=== PATIENT | female | born 1980 | race Caucasian/White ===

== ENCOUNTER 2017-03-31 01:35 | Emergency (ER) | payer MEDICAID, SELFPAY ==
[2017-03-31 01:37] VITALS: BP 137/117; PULSE 89; RESP 16; TEMP 36.6; O2SAT 95; BMI 33.3
--- NOTE | 2017-03-31 01:54 | US_ITS ---
STUDY: FIRST TRIMESTER OBSTETRICAL ULTRASOUND REASON FOR EXAM: Female, 36 years old. Lower pelvic pain. Elevated beta hCG. LMP: 02/23/2017. TECHNIQUE: Transvaginal. PRIOR ULTRASOUND: None. FINDINGS: There is visualization of a single gestational sac in a normal intrauterine position. The mean sac diameter (MSD) measures 1.3 cm, indicating an estimated gestational age (EGA) of 6 weeks, 1 days. The gestational sac shape is within normal limits. There is a visualized yolk sac. The yolk sac measures 3 mm. The placenta is non-visualized. There is visualization of a live embryo. The crown-rump length (CRL) measures 0.2 cm, indicating an estimated gestational age (EGA) of 5 weeks, 6 days. There is demonstrated cardiac activity with a heart rate of 102 bpm. The estimated gestation age (EGA) by LMP is 5 weeks, 1 days. The estimated date of delivery (VIOLETTE) by LMP is 11/30/2017. The estimated gestation age (EGA) by US is 6 weeks, 0 days. The estimated date of delivery (VIOLETTE) by US is 11/24/2017. The uterus measures 8.8 x 8.1 x 4.5 cm. Uterine fibroids measuring 3.4 x 3.1 x 3.3 cm and 2.7 x 2.2 x 2.1 cm. The cervix is closed. The right ovary measures 2.7 x 2.2 x 1.4 cm. There is no right ovarian cyst. There is no visualized right adnexal mass or complex lesion. Left ovary not visualized. There is no fluid in the cul de sac. US/Transvaginal w/Preg US IMPRESSION: Single living intrauterine gestation with an estimated gestational age by ultrasound of 6 weeks 0 days. Estimated date of delivery 11/24/2017. Uterine fibroids. Left ovary not visualized. Electronically Signed: Carlos Fry MD at 4:19 EST , Service support ,
[2017-03-31 03:37] VITALS: RESP 18
[2017-03-31] MEDS: Ondansetron ODT 4 MG Tablet 8 MG PO (03:55)
--- NOTE | 2017-03-31 04:30 | ED.DCSUM_ITS ---
- ER Visit Summary Date of Service: 03/31/17 Chief Complaint: [] Left lower abdominal pain History of Present Illness: The patient is a 36 F patient was seen at [facility] and sent here for ultrasound. She developed some left lower pelvic pain at 5 PM today. It was a dull sensation. Is gone currently. She is and found out today. They did lab work and found out that her quantitative hCG was greater than 16,000. They do not have ultrasound capabilities. Urinalysis was negative. They sent her here for an ultrasound to rule out ectopic. Physical Examination: [] Vital signs reviewed General: Well-nourished well-developed Head: Normocephalic atraumatic Eyes: Pupils equal round and reactive to light extraocular movements intact ENT: TMs clear no hemotympanum no trauma Neck: Nontender full range of motion Cardiovascular: Regular rate rhythm no murmurs normal S1-S2 Respiratory: No distress clear to auscultation bilaterally chest nontender Abdomen: Soft nontender nondistended normal bowel sounds no masses Back: Nontender no CVA tenderness Extremities: Nontender active range of motion ?4 extremities no trauma Skin: Normal color no trauma Neuro alert oriented cranial nerves II through XII intact normal strength sensation reflexes Test Results: [] Emergency Department Course and Treatment: [] Percent obtained and shows a single live intrauterine at 6 weeks 0 days. Positive fibroid noted. Unable to visualize left ovary. Patient remained stable here she did require Zofran for nausea. 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 She wants to do [id number] prenatals. Could be an ovarian cyst. This could be gas pains. She will follow-up. Treatment Plan: [] Disposition: [] Impression: [] Adnexal pain resolved First trimester intrauterine This note was generated with [employer] dictation software. It may contain incorrect words, spelling, and punctuation that were not noted in review of the chart prior to signing ED Disposition - Plan for ED Patient: Chief Complaint: Female C/O Referrals: Elijah Love MD [Primary Care Provider] -
--- NOTE | 2017-03-31 04:30 | ED.DEP ---
ED Disposition - Plan for ED Patient: Disposition: Home or Assisted Living Chief Complaint: Female C/O Instructions: Care for a Healthy Baby Referrals: Elijah Love MD [Primary Care Provider] - Doctor,Your [STAFF PHYSICIAN] -
[2017-03-31 04:34] VITALS: RESP 18
== END 2017-03-31 04:35 | disposition home or self-care (01) ==
PROVIDERS: Emergency Provider Emergency Medicine; Family Provider Family Medicine; PCP Family Medicine
DX: O26.891 Other specified pregnancy related conditions, first trimester (principal); R10.2 Pelvic and perineal pain; Z3A.01 Less than 8 weeks gestation of pregnancy; O99.331 Smoking (tobacco) complicating pregnancy, first trimester; Z11.3 Encounter for screening for infections with a predominantly sexual mode of transmission; Z12.4 Encounter for screening for malignant neoplasm of cervix
CPT/HCPCS: 76817; 87491; 87591; 87624; 88175; 99282; G0145

== ENCOUNTER → 2017-03-31 17:33 | Outpatient (CLI) | payer MEDICAID, SELFPAY ==
[2017-03-31 19:23] LABS: Chlamydia Trachomatis by PCR Negative (Negative); Neisserai gonorrhoeae by PCR Negative (Negative); Probe Check PASS; Specimen Processing Control PASS
[2017-03-31 19:24] LABS: Sample Adequacy Control PASS
[2017-04-07 10:52] LABS: HPV HC, High Risk Negative (Negative)
== END ==
PROVIDERS: Visit Provider Obstetrics & Gynecology
DX: Z12.4 Encounter for screening for malignant neoplasm of cervix (principal); Z11.3 Encounter for screening for infections with a predominantly sexual mode of transmission
CPT/HCPCS: 87491; 87591; 87624; 88175; G0145

== ENCOUNTER 2017-04-20 19:29 | Emergency (ER) | payer SELFPAY ==
[2017-04-20 19:32] VITALS: BP 148/77; PULSE 85; RESP 18; TEMP 36.1; O2SAT 95; BMI 33.0
--- NOTE | 2017-04-20 19:48 | US_ITS ---
STUDY: FIRST TRIMESTER OBSTETRICAL ULTRASOUND REASON FOR EXAM: Female, 36 years old. BLEEDING WITH CRAMPS LMP: TECHNIQUE: Transvaginal PRIOR ULTRASOUND: None. FINDINGS: 1.10.18 The mean sac diameter (MSD) measures 34MM, indicating an estimated gestational age (EGA) of 8 weeks, 6 days. The gestational sac shape is within normal limits. There is a visualized yolk sac. The yolk sac measures 4.3 mm. The placenta is non-visualized. There is visualization of a live embryo. The crown-rump length (CRL) measures 22 mm, indicating an estimated gestational age (EGA) of 8 weeks, 6 days. There is demonstrated cardiac activity with a heart rate of 170 bpm. The estimated gestation age (EGA) by LMP is 8 weeks, 6 days. The estimated date of delivery (VIOLETTE) by LMP is 9.5.18. The estimated gestation age (EGA) by US is 8 weeks, 6 days. The estimated date of delivery (VIOLETTE) by US is 9.5.18. The uterus measures 10.5 x 11 x 5.7 cm. There is demonstrated uterine fibroid. Fibroid measures 52 x 45 mm and 29 x 20 mm. The cervix is closed. The right ovary measures 27 x 20 x 20 mm. There is no right ovarian cyst. There is no visualized right adnexal mass or complex lesion. The left ovary is not seen. There is no fluid in the cul de sac. US/Transvaginal w/Preg US IMPRESSION: There is a single live intrauterine with a heart rate of 170 bpm. The estimated gestation age (EGA) by US is 8 weeks, 6 days. The estimated date of delivery (VIOLETTE) by US is 9.5.18. Fibroid uterus. Electronically Signed: Driss Leslie MD at 21:07 EST , Service support ,
--- NOTE | 2017-04-20 20:05 | ED.DCSUM_ITS ---
- ER Visit Summary Date of Service: 04/20/17 Chief Complaint: First trimester vaginal bleeding History of Present Illness: The patient is a 36 F who states that she is 9 weeks . She is Ab1. Patient Dr. Lynch. Patient states that yesterday she began to have some spotting with some mild cramping. Today she states she passed about a cup of blood. Still with some slight cramping. She did not contact 's office. 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 She denies any fevers. She denies urinary symptoms. No known clotting disorders. Physical Examination: Afebrile vital signs are stable Gen: Well-nourished well-developed Head: Normocephalic atraumatic Eyes: Perrl EOMI ENT: TMs clear no rhinorrhea moist mucous membranes Neck: Supple no lymphadenopathy no JVD nontender CVS: Regular rate rhythm no murmurs normal S1-S2 Respiratory: No distress clear to auscultation bilaterally chest nontender Abdomen: Soft nontender nondistended normal bowel sounds no masses Back: Nontender Extremity: Nontender no edema Skin: Normal color no rash Neuro: alert orientated ?3 CN II-XII intact normal strength sensation reflexes gait cerebellar Psych: Normal affect normal mood Test Results: Patient is O+ by chart biopsy. Quantitative H CG is 94, 400. Urinalysis normal. Pelvic ultrasound shows a fibroid uterus with a single live intrauterine at a rate of 170. Emergency Department Course and Treatment: I spoke with Dr. Finley. Patient will follow-up in the office. She has an appointment next Wednesday. She will be placed on pelvic rest. Impression: 1. First trimester vaginal bleeding 2. Threatened miscarriage This note was generated with [employer] dictation software. It may contain incorrect words, spelling, and punctuation that were not noted in review of the chart prior to signing ED Disposition - Plan for ED Patient: Disposition: Home or Assisted Living Chief Complaint: Vag Bld, Preg Instructions: ED Miscarriage Poss Referrals: Elijah Love MD [Primary Care Provider] - Jordon Plasencia MD [STAFF PHYSICIAN] - Keep Sandra appointment
[2017-04-20 20:22] LABS: Mucous, Urine 0 SEEN /hpf (<or=2+)
[2017-04-20 20:38] LABS: Color, Urine Yellow (Yellow); Glucose, Dipstick Normal (Normal); Ketone-Dipstick 5 mg/dl (Negative); Leukocyte Esterase-Dipstick 25 /ul (Negative); Nitrite-Dipstick Negative (Negative); Occult Blood-Urine 10 /ul (Negative); Protein-Dipstick Negative (Negative); Specific Gravity, Urine 1.025 (1.002-1.030); Urine Bilirubin Dipstick Negative (Negative); Urine Clarity Sl. Cloudy (Clear); Urine Urobilinogen Normal (Normal)
[2017-04-20 21:05] LABS: Squamous Epithelial Cells - UA 0-5 SEEN /hpf (5-10); White Blood Cells 0-5 SEEN /hpf (0-5)
[2017-04-20 21:06] LABS: Bacteria RARE /hpf (None Seen); Red Blood Cells-Urine 0-5 SEEN /hpf (0-5)
[2017-04-20 21:22] LABS: hCG Titer Quant., Serum 94400 mIU/mL (<9 non-preg)
[2017-04-20 22:19] VITALS: BP 132/75; PULSE 74; RESP 16; O2SAT 99
== END 2017-04-20 22:21 | disposition home or self-care (01) ==
PROVIDERS: Emergency Provider Emergency Medicine; Family Provider Family Medicine; PCP Family Medicine
DX: O20.0 Threatened abortion (principal); Z3A.09 9 weeks gestation of pregnancy
CPT/HCPCS: 76817; 81001; 84702; 99283; A4216

== ENCOUNTER → 2017-04-28 16:44 | Outpatient (CLI) | payer MEDICAID, SELFPAY ==
[2017-04-20 19:32] VITALS: BMI 33.0
[2017-04-28 17:39] LABS: Absolute Lymphocyte Count 1.97 X10^3/ul (0.83-4.51); Absolute Neutrophil Count 7.3 X10^3/uL (2.0-7.7); Basophil# 0.01 X10^3/uL; Basophil% 0.1 % (0-1); Eosinophil# 0.08 X10^3/uL; Eosinophils% 0.8 % (0-5); Hemoglobin 13.5 g/dl (12.0-15.0); Lymphocyte # 1.97 X10^3/ul (4.0); Lymphocyte % 19.8 % (19-41); Mean Corp Hgb Conc 34.6 g/gl (32-36); Mean Corpuscular Hgb 32.4 pg (27.0-32.0); Mean Corpuscular Volume 93.5 fL (81-99); Mean Platelet Vol. 10.3 fl (6.2-12.0); Monocyte# 0.58 X10^3/uL; Monocyte% 5.8 % (0-10); Neutrophil # 7.29 X10^3/uL (2.7-7.7); Neutrophil % 73.4 % (47-70); Platelet Count 224 K/mm3 (150-450); RBC Distribution Width CV 12.6 % (11.6-14.6); RBC Distribution Width SD 42.6 fl (35.1-43.9); Red Blood Count 4.17 M/mm3 (4.2-5.4); White Blood Count 9.9 K/mm3 (4.4-11.0)
[2017-04-28 17:47] LABS: POSITIVE COUNT NO; POSITIVE DIFFERENTIAL NO; POSITIVE MORPHOLOGY NO
[2017-04-28 18:00] LABS: Color, Urine Yellow (Yellow); Glucose, Dipstick Normal (Normal); Ketone-Dipstick 5 mg/dl (Negative); Leukocyte Esterase-Dipstick 100 /ul (Negative); Nitrite-Dipstick Negative (Negative); Occult Blood-Urine 10 /ul (Negative); Protein-Dipstick Negative (Negative); Urine Bilirubin Dipstick Negative (Negative); Urine Clarity Sl. Cloudy (Clear); Urine Urobilinogen Normal (Normal)
[2017-04-28 18:16] LABS: Amphetamine Urine VISTA NEGATIVE (<1000 ng/mL); Barbiturate Urine VISTA NEGATIVE (< 200 ng/mL); Benzodiazepine Urine VISTA NEGATIVE (< 200 ng/mL); Cocaine Urine VISTA NEGATIVE (< 300 ng/mL); Ecstacy Urine VISTA NEGATIVE (< 500 ng/mL); Methadone Urine VISTA NEGATIVE (< 300 ng/mL); PCP Urine VISTA NEGATIVE (< 25 ng/mL); THC Urine VISTA NEGATIVE (< 50 ng/mL); Vista UDS pH Range 6
[2017-04-28 18:39] LABS: Thyroid Stim Hormone (TSH) 2.77 uIU/mL (0.358-3.74)
[2017-04-28 19:03] LABS: COTININE Drug Screen Negative (<200 ng/mL)
[2017-04-28 19:20] LABS: HIV - WCH Non-Reactive (Nonreactive); Rubella IgG 59.9 IU/mL
[2017-04-30 03:49] LABS: Prenatal RPR NONREACTIVE (NONREACTIVE)
[2017-04-30 07:20] LABS: HEPATITIS B SURFACE AG Negative (Negative); Hep C Antibodies 0.1 s/co ratio (0.0-0.9)
== END ==
PROVIDERS: Visit Provider Obstetrics & Gynecology
DX: Z34.81 Encounter for supervision of other normal pregnancy, first trimester (principal)
CPT/HCPCS: 36415; 80307; 81002; 84443; 85025; 86703; 86762; 86803; 87340

== ENCOUNTER → 2017-08-26 15:10 | Outpatient (CLI) | payer MEDICAID, SELFPAY ==
--- NOTE | 2017-08-26 15:10 | DT_ITS ---
This patient was seen during an EMR downtime August 23, 2017 - August 30, 2017. This patient may have a combination of paper and electronic documentation or all paper documentation. All documentation is viewable within the e-chart portion of [facility] for each patient visit.
[2017-08-31 04:16] LABS: Hemoglobin 12.5 g/dl (12.0-15.0); Mean Corp Hgb Conc 33.8 g/gl (32-36); Mean Corpuscular Hgb 32.1 pg (27.0-32.0); Mean Corpuscular Volume 95.1 fL (81-99); Red Blood Count 3.89 M/mm3 (4.2-5.4)
[2017-08-31 04:17] LABS: Mean Platelet Vol. 10.8 fl (6.2-12.0); Platelet Count 192 K/mm3 (150-450); RBC Distribution Width CV 14.1 % (11.6-14.6); RBC Distribution Width SD 48.4 fl (35.1-43.9); Scan Indicated on CBC? Y/N NO; White Blood Count 9.2 K/mm3 (4.4-11.0)
[2017-08-31 04:40] LABS: Glucose Challenge Gest 1H 50g 152 mg/dL (70-140)
== END ==
PROVIDERS: Visit Provider Obstetrics & Gynecology
DX: Z34.83 Encounter for supervision of other normal pregnancy, third trimester (principal)
CPT/HCPCS: 36415; 82950; 85027

== ENCOUNTER → 2017-09-07 06:59 | Outpatient (CLI) | payer MEDICAID, SELFPAY ==
[2017-09-07 07:53] LABS: Glucose GTT-Gestation. Fasting 95 mg/dL (<105)
[2017-09-07 09:48] LABS: Glucose GTT-Gestational 2 Hr 165 mg/dL (<165)
[2017-09-07 09:50] LABS: Glucose GTT-Gestational 1 Hr 168 mg/dL (<190)
[2017-09-07 11:13] LABS: Glucose GTT-Gestational 3 Hr 148 L (<145)
== END ==
PROVIDERS: Family Provider Family Medicine; PCP Family Medicine; Visit Provider Obstetrics & Gynecology
DX: O24.912 Unspecified diabetes mellitus in pregnancy, second trimester (principal); Z3A.00 Weeks of gestation of pregnancy not specified
CPT/HCPCS: 36415; 82951; 82952

== ENCOUNTER 2017-11-17 05:35 | Inpatient (IN) | payer MEDICAID, SELFPAY ==
[2017-11-17] VITALS (22 sets, daily range): BP systolic 102–125; BP diastolic 50–76; PULSE 82–99; RESP 14–20; TEMP 36.3–37.2; O2SAT 93–100; BMI 37.2
[2017-11-17] MEDS: Lactated Ringers 1,000 ML 999 ML IV (05:55)
[2017-11-17 06:09] LABS: Absolute Neutrophil Count 7.5 X10^3/uL (2.0-7.7); Basophil# 0.01 X10^3/uL; Basophil% 0.1 % (0-1); Eosinophil# 0.03 X10^3/uL; Eosinophils% 0.3 % (0-5); Hematocrit 36.6 % (37-47); Hemoglobin 12.4 g/dl (12.0-15.0); Lymphocyte % 18.4 % (19-41); Mean Corp Hgb Conc 33.9 g/gl (32-36); Mean Corpuscular Hgb 31.7 pg (27.0-32.0); Mean Corpuscular Volume 93.6 fL (81-99); Mean Platelet Vol. 10.6 fl (6.2-12.0); Monocyte# 0.88 X10^3/uL; Monocyte% 8.5 % (0-10); Neutrophil % 72.5 % (47-70); Platelet Count 163 K/mm3 (150-450); RBC Distribution Width CV 14.3 % (11.6-14.6); RBC Distribution Width SD 48.4 fl (35.1-43.9); Red Blood Count 3.91 M/mm3 (4.2-5.4); White Blood Count 10.3 K/mm3 (4.4-11.0)
[2017-11-17 06:10] LABS: POSITIVE COUNT NO; POSITIVE DIFFERENTIAL NO; POSITIVE MORPHOLOGY NO
[2017-11-17 06:18] LABS: International Normalized Ratio 0.9; Prothrombin Time (Protime)PT. 12.6 SECONDS (11.7-14.9)
[2017-11-17 06:19] LABS: Partial Thromboplast Time 25.8 Seconds (24.1-36.2)
[2017-11-17] MEDS: Lactated Ringers 1,000 ML 150 ML IV (07:00)
[2017-11-17] MEDS: Sodium Citrate/Citric Acid 30 ML UDC PO (07:12)
--- NOTE | 2017-11-17 07:22 | OP.PCM_ITS ---
Operative Report Date of Procedure: 11/17/17 Surgeon: Jordon Plasencia MD, FACOG Tissue Rewinder: SARAH Rolle Anesthesia: Dina Resendez CRNA Anesthesia: Spinal with Duramorph Pre-op Diagnosis: Prior Macrosomia; Uterine Fibroid Post-Op Diagnosis: Prior Macrosomia; Uterine Fibroid, Macrosomia Procedure: Primary Llow Transverse Cervical Caesarean Section Findings: Viable female infant with Apgars of 9/9 in occiput anterior presentation with clear amniotic fluid and normal three-vessel placenta with baby weighing 10 lbs. 4 oz. Indication: This is a 37-year-old who presents for her first at 39 weeks gestation. care has otherwise been uneventful except for a history of delivering an 11 pound baby. The patient requested a primary C- section for this reason. The patient has been counseled regarding the risk and indications of this procedure including the possibility of bleeding infection and injury to surrounding structures such as bowel bladder. All questions were answered. Procedure: Patient was taken to the operating room where after spinal anesthesia was placed, the patient was prepped and draped in usual sterile fashion and a Taylor catheter was placed. Approximately 20 cc of 1% lidocaine was injected on the left side of the Pfannenstiel incision to help with anesthetic as spinal seemed to have some patchiness with patient retaining some marginal sensation on the left. The abdomen was entered through a Pfannenstiel incision and peritoneum was entered bluntly. After developing a bladder flap on the lower uterine segment a low transverse incision was made on the uterus and head was easily delivered onto the operative field the nose mouth and oropharynx were bulb suctioned. Subsequently a viable female was born with Apgars of 9/9. The infant was noted to cry move all extremities vigorously on the operative field. The umbilical cord was doubly clamped and ligated and handed to the nursery personnel who were present for the delivery. Placenta was delivered and noted to be 3 vessels and normal. Uterus was exteriorized and remaining placental tissue was removed. The uterus was then closed in 2 layers first with running locked 0 Vicryl suture followed by a second imbricating layer with 0 Vicryl suture. 0 Vicryl suture was then used in a horizontal mattress interrupted fashion to affect final hemostasis of the uterine incision line. Normal fallopian tubes and ovaries were visualized and the uterus was returned to the pelvis. There was noted to be approximately 4 cm intra-mural fibroid in the left anterior portion of the uterus which was not disturbed. Hemostasis was noted and rectus abdominis muscles were reapproximated in the midline with interrupted Number 0 Vicryl suture in a horizontal mattress fashion. Fascia was closed with running Number 1 PDS Strata fix suture. Subcutaneous tissue was irrigated with copious amouts of saline solution and then closed with running 3-0 Vicryl suture in 2 layers. Skin was closed with 4-0 monocryl suture in a running subcuticular fashion. Steri strips, telfa, and tape were placed across the incision. The patient tolerated the procedure well and was taken to the recovery room in satisfactory condition. Sponge, needle, and instrument counts were all reportedly correct. EBL was 500 cc cc. Cefotan 2 gms IV was given prior to the procedure. Spicemen to Pathology: None Complications: None
--- NOTE | 2017-11-17 07:22 | PCM.DCCSEC ---
Discharge Diet: No Restrictions Discharge Activity: May not drive while taking narcotic pain medications., May Shower, May Take a Tub Bath May resume sexual activity in: 4-6 weeks Lifting Restrictions: 20 pounds Additional Activity Instructions:: Nothing in the vagina for 4-6 weeks. You may return to work/school in 6 weeks. Call your doctor if your incision/area has: Continuous Slow Oozing, Sudden Increased Bleeding, Increased Pain/ Swelling, Increased Redness, Foul Smelling Discharge Call your doctor if you observe: Fever of 101 or Higher, Inability to urinate, Inability to have a bowel movement, Using more than one pad per hour Additional Instructions: If you experience any of the following, contact your healthcare provider. Bleeding that soaks a pad every hour for 2 hours Unrelieved incision or abdominal pain Swelling, redness, discharge or bleeding from your incision or episiotomy site Your incision begins to separate Problems urinating (including inability to urinate or burning while urinating). Visual changes Severe headache Flu-like symptoms Pain or redness in one of both of your breasts Pain, warmth, tenderness or swelling in your legs, especially the calf area Frequent nausea and vomiting Symptoms of depression or anxiety If you experience any of the following, call 911 or go to the nearest Emergency Room. Chest pain Problems breathing Seizure activity Partial or complete paralysis of a body part, slurred speech, weakness or drooping of the face, or a sudden inability to walk or hold your balance Allergies/Adverse Reactions: Allergies acetaminophen [From Vicodin] Adverse Reaction (Verified 04/20/17 19:31) Nausea/Vom/Diarrhea hydrocodone bitartrate [From Vicodin] Adverse Reaction (Verified 04/20/17 19:31) Nausea/Vom/Diarrhea Medications to take at Discharge Docusate Sodium [Colace] 100 mg PO BID PRN PRN #60 cap 11/17/17 Oxycodone [Oxyir] 5 mg PO Q6H PRN PRN 7 Days #20 tab 11/17/17 The following prescriptions were given: Oxycodone [Oxyir] 5 mg PO Q6H PRN PRN 7 Days #20 tab PRN Reason: Severe Pain (6-12/29) Docusate Sodium [Colace] 100 mg PO BID PRN PRN #60 cap PRN Reason: Constipation Follow-Up: Call to make an appointment with your doctor for an incision check in 1-2 weeks. You will also need a 6 week post- follow up appointment. Test results from this visit will be discussed in further detail at your follow-up appointment, if applicable. Please Follow Up With: Jordon Plasencia MD - [phone] When: Call to make an appointment for an incision check in 2 weeks. Primary Care Physician: Elijah Love MD [Primary Care Provider] -
[2017-11-17] MEDS: Cefazolin 2 GM in 0.9% Normal Saline 100 ML IV (08:00)
[2017-11-17] MEDS: Oxytocin 30 units/NS 500 ml 30 UNITS/500 ML IV.SOLN 167 UNITS IV (08:12)
[2017-11-17] MEDS: Lactated Ringers 1,000 ML 100 ML IV ×2 (09:30→22:04)
[2017-11-17] MEDS: Ketorolac 30 MG/ML Syringe IV ×3 (13:26→23:24)
[2017-11-17] MEDS: Cefazolin 1 GM/50 ML BAG IV ×2 (15:44→23:38)
[2017-11-17] MEDS: proMETHazine 25 MG/ML Syringe 12.5 MG IV (18:16)
--- NOTE | 2017-11-17 20:00 | NURSING ---
Offered pt to stand or sit at bedside. Pt c/o headache, relieved when laying flat. Anesthesia aware, to start caffeine po in am and rest overnight. Pt did not wish to sit up or stand at this time.
[2017-11-18] VITALS (8 sets, daily range): BP systolic 107–123; BP diastolic 52–66; PULSE 68–95; RESP 16–18; TEMP 36.6–36.8; O2SAT 97–100
[2017-11-18] MEDS: Acetaminophen 500 MG Tablet 1000 MG PO ×2 (03:50→15:45)
[2017-11-18] MEDS: Ketorolac 30 MG/ML Syringe IV ×4 (05:34→23:49)
[2017-11-18 06:06] LABS: Hematocrit 29.6 % (37-47); Hemoglobin 9.9 g/dl (12.0-15.0); Mean Corp Hgb Conc 33.4 g/gl (32-36); Mean Corpuscular Volume 95.8 fL (81-99); Mean Platelet Vol. 10.5 fl (6.2-12.0); Platelet Count 146 K/mm3 (150-450); RBC Distribution Width SD 46.1 fl (35.1-43.9); Red Blood Count 3.09 M/mm3 (4.2-5.4); White Blood Count 9.3 K/mm3 (4.4-11.0)
[2017-11-18 06:17] LABS: Scan Indicated on CBC? Y/N NO
[2017-11-18] MEDS: Senna/Docusate Sodium 1 Tablet PO (08:41)
[2017-11-18] MEDS: oxyCODONE 5 MG Tablet PO ×3 (08:42→19:57)
[2017-11-18] MEDS: Caffeine 200 MG Tablet PO (09:03)
--- NOTE | 2017-11-18 09:37 | PCM.PN.OB ---
Subjective: Patient without complaints. Tolerating diet well. Positive flatus. Had somewhat of a headache yesterday afternoon when sitting up but this is much improved today. - Physical Exam Vital Signs Temp Pulse Resp BP Pulse Ox 97.8 F 87 18 121/66 H 99 11/18/17 08:30 11/18/17 08:30 11/18/17 08:30 11/18/17 08:30 11/18/17 08:30 Oxygen Delivery Method Room Air Weight: 244 lb 11.41 oz Body Mass Index (BMI) 37.2 Intake and Output for Last 24 Hours 11/16/17 11/17/17 11/18/17 23:59 23:59 23:59 Intake Total 3095 / 3095 1668 / 1668 Output Total 2500 / 2500 1500 / 1500 Balance 595 / 595 168 / 168 Laboratory Tests Past 24 Hrs 11/18/17 05:42 WBC 9.3 RBC 3.09 L Hgb 9.9 L Hct 29.6 L MCV 95.8 MCH 32.0 MCHC 33.4 RDW 14.0 RDW Differential 46.1 H Plt Count 146 L MPV 10.5 Wound is clean, dry, intact. Good urine output. Hemoglobin okay. Medical Necessity - Tobacco Use Smoking Status: Former smoker Assessment/Plan Doing well status post primary postoperative day #1. Continuing present care. Anticipate possible release tomorrow if good progress continues. Discussed possibility of a blood patch if headache recurs or does not resolve.
[2017-11-18] MEDS: 0.9% Saline Lock 10 ML Syringe IV ×4 (12:07→23:51)
--- NOTE | 2017-11-18 20:04 | NURSING ---
states pain is a 5 currently but want 2 oxyir as it is just starting with getting up to bathroom and doesnt want to wait but stay ahead of the pain.
[2017-11-19 00:15] VITALS: BP 110/50; PULSE 70; RESP 16; TEMP 36.7
[2017-11-19] MEDS: oxyCODONE 5 MG Tablet PO ×4 (02:39→15:11)
--- NOTE | 2017-11-19 03:32 | NURSING ---
pt offered russell had talked with dr. Naylor about pt not beigna able to sleep due to severe headache when standing and wanting something, when medication taken to pt decided she does not want to take she is to nervous to add another medication she has not taken before is going to try watching tv while lying down for distraction. informed to call if needs anything. bedpan to room so she does not need to stand currently encourged moving legs while staying in bed.
--- NOTE | 2017-11-19 04:45 | NURSING ---
5390 pt awake states she was able to doze a little informed that dr. Finley did order benadryl prn for sleep as she had requested, state she does not need it currently. pt encouraged to call when needs to void and ww will use bedpad to help control her headache. States she will.
[2017-11-19] MEDS: Ketorolac 30 MG/ML Syringe IV (05:46)
[2017-11-19] MEDS: 0.9% Saline Lock 10 ML Syringe IV ×2 (05:47→05:49)
--- NOTE | 2017-11-19 07:03 | NURSING ---
0640 pt with increased pain in head when upright was in tears last time up to void. given 2 oxyir for pain current and to hess off increased pain with beign upright. pt placed on bedpan and voided to avoid increasing pain in head. pt does move self around in bed well. states it was better for head with not getting up.
[2017-11-19 08:00] VITALS: BP 122/62; PULSE 86; RESP 18; TEMP 36.6; O2SAT 94
--- NOTE | 2017-11-19 08:24 | PCM.PN.OB ---
Subjective: POD#2 Primary C section for suspected macrosomia. Severe JOEL and is planning repeat consult with anesthesia today. JOEL is much worse than yesterday. Hoping to go home today. Sister here at bedside and assisting in care of baby. Pt states other sister coming to town today. Planning birthday libertarian for her son tomorrow. Really wants to go home if at all able. - Physical Exam General: Alert, Oriented x3, Cooperative - Lying flat in bed (2/2 JOEL with sitting or standing) and bottle feeding baby HEENT: Atraumatic Neck: Supple Abdomen: Soft - fundus firm NT at 3 cm inferior to umbilicus Skin: Incision - CDI. Psych/Mental Status: Normal Affect Vital Signs Temp Pulse Resp BP Pulse Ox 98.0 F 70 16 110/50 L 97 11/19/17 00:15 11/19/17 00:15 11/19/17 00:15 11/19/17 00:15 11/18/17 20:00 Oxygen Delivery Method Room Air Weight: 111 kg Body Mass Index (BMI) 37.2 Intake and Output for Last 24 Hours //18 //18 / 23:59 23:59 23:59 Intake Total 3095 / 3095 1668 / 1668 Output Total 2500 / 2500 3550 / 3550 Balance 595 / 595 -1882 / -1882 Medical Necessity - Tobacco Use Smoking Status: Former smoker Assessment/Plan POD#2 C section for suspected macrosomia. Spinal OJEL. Anesthesia consult today for evaluation and possible epidural blood patch. Plans to nurse. Bottle feeding now 2/2 severe JOEL and unable to sit up to nurse Tolerating diet well. Voiding. Stable except for JOEL. Dischg home later today per pt request, if JOEL under control and remains stable.
--- NOTE | 2017-11-19 08:30 | PCM.DC.SUM ---
Discharge Date and Diagnosis Date of Admission: 11/17/17 - 39 wk primary C/s for macrosomia Date of Discharge: 11/19/17 - Same Hospital Course and Treatment Consultations 11/19/17 08:22 Consult: Anesthesia Routine Reason For Exam: epidural headache Comment: Operations: - - Primary C/S Summary of Care Provided: The patient is a 37 year old female with prior 11 # vaginal delivery. Presents for primary C section for suspected macrosomia. Delivered by primary C/S on 11/17/17 10# 4 oz female. Postoperative course complicated by spinal JOEL. Anesthesia consultation ordered and potential blood patch planned for worsening spinal JOEL. Acute blood loss anemia noted, with postop Hgb 9.9 g/dl. Pt requests dischg home on POD#2 . States sisters in town. Planning birthday constitution party for her son tomorrow. Plan dischg home after anesthesia evaluation for possible epidural blood patch, if JOEL adequately controlled. Discharge Diet: No Restrictions Discharge Activity: May not drive while taking narcotic pain medications., May Shower, May Take a Tub Bath May resume sexual activity in: 4-6 weeks Additional Activity Instructions:: Nothing in the vagina for 4-6 weeks. You may return to work/school in 6 weeks. Call your doctor if your incision/area has: Continuous Slow Oozing, Sudden Increased Bleeding, Increased Pain/ Swelling, Increased Redness, Foul Smelling Discharge Call your doctor if you observe: Fever of 101 or Higher, Inability to urinate, Inability to have a bowel movement, Using more than one pad per hour Home Medications: Medications to take at Discharge Docusate Sodium [Colace] 100 mg PO BID PRN PRN #60 cap 11/17/17 Oxycodone [Oxyir] 5 mg PO Q6H PRN PRN 7 Days #20 tab 11/17/17 Following Prescrptions Were Given to Patient: Oxycodone [Oxyir] 5 mg PO Q6H PRN PRN 7 Days #20 tab PRN Reason: Severe Pain (6-12/29) Docusate Sodium [Colace] 100 mg PO BID PRN PRN #60 cap PRN Reason: Constipation Primary Care Physician: Elijah Love MD [Primary Care Provider] - Please Follow Up With: Jordon Plasencia MD - [phone] When: Call to make an appointment for an incision check in 2 weeks. Medical Necessity - Tobacco Use Smoking Status: Former smoker Meaningful Use Info Meaningful Use Diagnoses (Choose all that apply): None applicable
--- NOTE | 2017-11-19 09:22 | NURSING ---
Sally Ramos, Reggie Keith, and this RN, Sanjuana Putnam, were present for blood patch procedure with Dr. Plasencia. Pre-procedure vital signs obtained at 0855. Blood pressure 133/58, SPO2 97%, and heart rate 89. 0859: 98% and HR 88 0900 967% and HR 88 0902 97% and HR 88 0903 98% and HR 91 0911 BP 140/68, 96% and HR 83 0913 Pt. reports she is having some anxiety from laying flat and from the procedure. Reassured we are monitoring her. SPO2 monitor attached to wall for monitoring. Pt. sister present with her. No further needs stated at this time. Instructed to lay flat for at least 40 minutes and that she will be checked on periodically.
[2017-11-19 16:12] VITALS: BP 126/77; PULSE 93; RESP 17; TEMP 36.7; O2SAT 98
== END 2017-11-19 16:20 | disposition home or self-care (01) | DRG 371 ==
PROVIDERS: Admitting Provider Obstetrics & Gynecology; Family Provider Family Medicine; PCP Family Medicine; Visit Provider Obstetrics & Gynecology
PROC: 10D00Z1 Extraction of Products of Conception, Low, Open Approach (ICD-10-PCS; CPT 59514; principal; 2017-11-17 07:15)
DX: O36.63X0 Maternal care for excessive fetal growth, third trimester, not applicable or unspecified (principal); O34.13 Maternal care for benign tumor of corpus uteri, third trimester; G97.1 Other reaction to spinal and lumbar puncture; Y84.4 Aspiration of fluid as the cause of abnormal reaction of the patient, or of later complication, without mention of misadventure at the time of the procedure; Y92.239 Unspecified place in hospital as the place of occurrence of the external cause; Z87.891 Personal history of nicotine dependence; Z3A.39 39 weeks gestation of pregnancy; Z37.0 Single live birth
CPT/HCPCS: 85025; 85027; 85610; 85730; 86850; 86900; 99218; J7120; A4216; G0378; J2405

== ENCOUNTER → 2018-01-27 15:36 | Outpatient (CLI) | payer MEDICAID, SELFPAY ==
[2018-01-27 20:04] LABS: Chlamydia Trachomatis by PCR Negative (Negative); Neisserai gonorrhoeae by PCR Negative (Negative); Probe Check PASS; Sample Adequacy Control PASS; Specimen Processing Control PASS
== END ==
PROVIDERS: Family Provider Family Medicine; PCP Family Medicine; Visit Provider Obstetrics & Gynecology
DX: Z11.3 Encounter for screening for infections with a predominantly sexual mode of transmission (principal)
CPT/HCPCS: 87491; 87591

== ENCOUNTER 2022-06-30 11:43 | Outpatient (CLI) | payer MEDICAID, SELFPAY ==
--- NOTE | 2022-06-30 | BRBX_PTH ---
PATIENT: AMANDA LACY LOC: [facility] U#:[id number] AGE/SX: 42/F ROOM: RE06/30/[address]: Dr. Daya Sanchez MD : 1980 BED: DIS: 06/30/2022 SPEC #: [id number] RECD: 06/30/22 13:08 STATUS: JONAS RETristan #: [id number] BENSON: 06/30/22 00:[address]: Daya Sanchez DEPT: SURGICAL PATHOLOGY RECD BY: Kelvin Yepez ENTERED: 06/30/22 13:08 SP TYPE: BREAST BX OTHR DR: Dr. Elijah Love MD Tissues: Right breast, NOS Procedures: Surgery Specimen Level IV HEADER OPERATION: Right stereotactic breast biopsy PRE-OP DIAGNOSIS: Right breast calcifications superior lateral middle depth TISSUE SUBMITTED: Right breast core tissue ISCHEMIC TIME: 1 minute FIXATION TIME: 7.5 hours MICROSCOPIC DIAGNOSIS Right breast, calcifications superior lateral middle depth, stereotactic core biopsy: A minute focus of invasive ductal carcinoma, nuclear grade 1 (0.1 cm in greatest dimension). Extensive ductal carcinoma in situ. See comment. MIKE:yuval 07/01/2022 COMMENT Ductal carcinoma in situ comprises more than 95% of the total tumor volume. Ductal carcinoma in situ shows comedo, cribriform, cystic, solid, and papillary pattern, nuclear grade 2, comedo necrosis and focal calcifications. Immunohistochemistry ([id number]) supports the above diagnosis. ER/HI/Ngl9zfg studies are being performed on sections of tumor and the results from this study will be reported separately ([id number]). Case has been reviewed in consultation with Dr. Bledsoe who concurs with the above diagnosis. IDC:AM MICROSCOPIC DESCRIPTION Slides are reviewed. GROSS DESCRIPTION Received in fixative is one container labeled with the patient's name and designated right breast. The specimen consists of multiple elongated fragments of carlton-yellow fibroadipose tissue that in aggregate measure 5.0 x 3.0 x 0.3 cm. The entire specimen is submitted in two cassettes. / MIKE:yuval 06/30/2022 TC:0 CPT: 98686 ADDENDUM ADDENDUM ADDENDUM ADDENDUM ADDENDUM ADDENDUM ADDENDUM ADDENDUM ADDENDUM ADDENDUM 08/24/2022 10:24 ADDENDUM 08/24/2022 10:24 ADDENDUM 08/24/2022 10:24 ADDENDUM 08/24/2022 10:24 ADDENDUM 08/24/2022 10:24 This addendum is added to incorporate an outside pathology consultation report. The case was examined at [facility] (#[id number]) and the following diagnosis was rendered. Breast, right, superior lateral middle depth, biopsy: Microinvasive ductal carcinoma, nuclear grade 1. Please see complete above mentioned consultation report in EMR
--- NOTE | 2022-06-30 | IMM_PTH ---
PATIENT: AMANDA LACY LOC: [facility] U#:[id number] AGE/SX: 42/F ROOM: RE06/30/[address]: Dr. Daya Sanchez MD : 1980 BED: DIS: 06/30/2022 SPEC #: [id number] RECD: 07/01/22 13:49 STATUS: JONAS REQ #: [id number] BENSON: 06/30/22 00:[address]: Daya Sanchez DEPT: IMMUNOHISTOCHEMISTRY RECD BY: Renuka Turcios ENTERED: 07/01/22 13:50 SP TYPE: IMMUNO OTHR DR: Dr. Elijah Love MD Tissues: Right breast, NOS Procedures: CALPONIN-1 (add) CK5-6 (add) CK8 (add) E-CAD (add) HER2 MYLENE (add) KI-67 (add) P53 (add) SC (add) P40 (add) ER (initial) PHYSICIAN & [address] [address] SPECIMEN INFORMATION: Tissue Source: Right breast Clinical Info: Right breast calcifications superior lateral middle depth Specimen Number: [id number] #2 CPT code: 13916, 93408 x6, 70453 x3 METHODOLOGY: Deparaffinized sections of prefer/formalin-fixed tissue or PAP/DQ stained slides are incubated with monoclonal/polyclonal antibodies/oligonucleotide probes. Localization is made via biotin free immunoperoxidase method. Appropriate controls are performed and reacted as expected. 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 MORPHOMETRIC ANALYSIS ER (clone 6F11) >95%, moderate SC (clone 16/1E2) >95%, strong Her-2Neu (clone CB11) 0 The prognostic test for HER2 is performed on formalin-fixed paraffin embedded tissue. A 3+ (positive) staining pattern is defined as intense, homogeneous, complete, circumferential membranous staining in >10% of contiguous tumor cells. A similar weak (2+) staining pattern is interpreted as equivocal. MARIA EUGENIA follow-up testing is recommended for all equivocal cases. Positivity/negativity for ER/SC is reported if > or < 1% of the tumor cells are immuno- reactive, respectively. The ASCO/CAP criteria is used for scoring. Reference: Journal of Clinical Oncology, 2013; 31:0239-4031 & 2010; 16:5004-5025. Duration of fixation: 7.5 Hrs; Sample Adequate: Yes. These assays have not been validated on decalcified tissues. Results should be interpreted with caution given the likelihood of false negativity on decalcified specimens. These tests were developed and their performance characteristics determined by [facility]. They may not have been cleared or approved by the U.S. Food and Drug Administration. The FDA has determined that such clearance or approval is not necessary. The above immunohistochemical/dualISH markers are ordered and reviewed by the Pathologist. INTERPRETATION: Right breast calcifications, superior lateral middle depth, stereotactic core biopsy: Invasive ductal carcinoma. Ductal carcinoma in situ. Positive for estrogen receptors (favorable prognostic indicator). Positive for progesterone receptors (favorable prognostic indicator). Negative for overexpression of NZI3xum. SJ:yuval 07/02/2022
--- NOTE | 2022-06-30 12:55 | OP.PCM_ITS ---
Report of Operation Date of Procedure: 06/30/22 Pre-Operative Diagnosis: abnormal calcifications of right breast mammograms Post-Operative Diagnosis: same Surgery/Procedure Performed:: right stereotactic breast biopsy Surgeon: Daya Sanchez Type of Anesthesia: Local Specimen's removed: right breast tissue Estimated Blood Loss (mL): minimal Description of Procedure: After informed consent was given, the patient was brought into the Breast Biopsy suite. Appropriate time out protocol was followed. The patient was placed in the prone position on the stereotactic biopsy table. The patient?s right breast was then placed in the opening at the head of the biopsy table. A knockout man compression mammogram was then obtained in the lateral view. The suspicious radiological lesion was thus identified. Stereo pictures of the lesion were then taken for XYZ coordinates. The Mammotome biopsy stylus was then positioned where it would be entering into the patient?s breast. The skin at this site was then cleansed with a surgical skin preparation. The skin and subcutaneous tissues at this site were then infiltrated with 1% xylocaine. A small skin incision was made with an 11 blade scalpel. The biopsy stylus was then positioned into the patient?s breast at the proper coordinates of depth. Using the Mammotome vacuum-assist device, several core samples of breast tissue were obtained. A specimen mammogram was the obtained. It revealed that the abnormal calcifications were within the specimen. I reviewed this personally and concluded that the tissue sampling was adequate. A hemostatic marker clip was then placed into the biopsy cavity and a knockout man film revealed that it was properly deployed. The patient was then placed in the supine position and pressure was applied to the breast until no active bleeding was noted. A nylon suture was applied to reapproximate the skin. A unilateral mammogram in the CC and MLO view were then taken; the marker clip was not in the vicinity of the calcifications, despite as being seen on the stereotactic table. Will await pathology for further determination. The patient tolerated the procedure well and was discharged from the Breast Biopsy suite in good condition. Complications none noted
== END 2022-06-30 23:59 | disposition home or self-care (01) ==
PROVIDERS: PCP Family Medicine; Visit Provider Surgery
DX: R92.0 Mammographic microcalcification found on diagnostic imaging of breast (principal)
CPT/HCPCS: 19081; 88305; 88341; 88342; J7050; A4648

== ENCOUNTER → 2022-07-17 | Outpatient (CLI) | payer MEDICAID, SELFPAY ==
[2022-07-29 16:09] LABS: HPV APTIMA, High Risk Negative (Negative)
== END | disposition home or self-care (01) ==
LOC: LABSPEC 16:51
PROVIDERS: PCP Family Medicine; Referring Provider Obstetrics & Gynecology; Visit Provider Obstetrics & Gynecology
DX: Z01.419 Encounter for gynecological examination (general) (routine) without abnormal findings (principal)
CPT/HCPCS: 87624; 88175; G0145

== ENCOUNTER 2023-09-06 23:53 | Emergency (ER) | payer MEDICAID, SELFPAY ==
[2023-09-06 23:54] VITALS: BP 133/67; PULSE 52; RESP 18; TEMP 35.9; O2SAT 100; BMI 32.4
[2023-09-07 01:28] LABS: Absolute Lymphocyte Count 1.91 X10^3/uL (0.83-4.51); Absolute Neutrophil Count 2.2 X10^3/uL (2.0-7.7); Basophil# 0.02 X10^3/uL; Basophil% 0.4 % (0-1); Eosinophils% 2.2 % (0-5); Hematocrit 37.5 % (37-47); Hemoglobin 12.3 g/dL (12.0-15.0); Lymphocyte # 1.91 X10^3/ul (0.83-4.51); Lymphocyte % 41.3 % (19-41); Mean Corp Hgb Conc 32.8 g/dL (32-36); Mean Corpuscular Hgb 30.9 pg (27.0-32.0); Mean Corpuscular Volume 94.2 fL (81-99); Mean Platelet Vol. 11.9 fl (6.2-12.0); Monocyte# 0.35 X10^3/uL; Monocyte% 7.6 % (0-10); NRBC Flagged by Analyzer 0 % (0-5); Neutrophil # 2.23 X10^3/uL (2.7-7.7); Neutrophil % 48.3 % (47-70); Platelet Count 166 K/mm3 (150-450); RBC Distribution Width CV 12.9 % (11.6-14.6); RBC Distribution Width SD 44.3 fl (35.1-43.9); Red Blood Count 3.98 M/mm3 (4.2-5.4); White Blood Count 4.6 K/mm3 (4.4-11.0)
[2023-09-07] MEDS: 0.9% Normal Saline (1000mL) 1,000 ML 999 ML IV (01:28)
[2023-09-07] MEDS: DiphenhydrAMINE 50 MG/ML Syringe 12.5 MG IV (01:28)
[2023-09-07] MEDS: Metoclopramide 10 MG/2 ML Vial IV (01:28)
--- NOTE | 2023-09-07 01:49 | EX.ED.DYSGE1 ---
HPI History of Present Illness Chief Complaint: Nausea/Vomiting/Diarrhea Informant: patient Narrative Narrative: Patient is a 43-year-old female with past medical history of anxiety and depression as well as breast cancer. She states that roughly 2 months ago she underwent gastric bypass surgery. She states since that time she has only been eating small amounts of soft foods such as protein shakes or applesauce. She states that despite this she has been having recurrent bouts of vomiting. She states that she is seeing her surgeon in follow-up as directed and was just advised to continue to try and advance her diet. She states that she still having bowel movements and she denies any known sick contact. She states she is concerned she is becoming dehydrated based on her current symptoms and therefore comes in for evaluation [facility] Medical History (Updated 09/07/23 @ 05:[address] Frederick Lester, DO) Ptosis of both breasts Abdominal panniculus Former smoker Intertrigo Right shoulder pain Left shoulder pain Chronic thoracic back pain Chronic neck pain Macromastia Progesterone receptor positive neoplasm Estrogen receptor positive status (ER+) Prophylactic breast removal Cancer phobia Breast cancer, right Severe allergy Hormone disturbance High cholesterol History of cervical cancer Rheumatoid arthritis Generalized headaches Anxiety and depression Back problem Arthritis Home Medications ?Medication ?Instructions ?Recorded ?Last Taken ?Type buspirone 7.5 mg tablet 7.5 mg PO BID 07/16/22 Unknown History ibuprofen 200 mg capsule 200 mg PO Q6H PRN fever or pain 07/16/22 Unknown History sertraline 100 mg tablet 150 mg PO DAILY 09/06/23 Unknown History Allergy/AdvReac Type Severity Reaction Status Date / Time acetaminophen (From Vicodin) AdvReac Nausea/Vom/ Verified 09/06/23 23:58 Diarrhea hydrocodone bitartrate (From AdvReac Nausea/Vom/ Verified 09/06/23 23:58 Vicodin) Diarrhea Family History Daughter Asthma Anxiety Depression Mother Diabetes High cholesterol Anxiety Depression Other Anemia Surgical History (Updated 09/06/23 @ 23:57 by Anahi Ferrell) Gastric bypass status for obesity History of History of loop electrical excision procedure (LEEP) Social History Smoking Status: Former smoker alcohol intake: never substance use type: does not use caffeine: Yes what type of physical activity do you participate in: none seatbelt use: always do you feel safe at home: Yes additional social history: Single ROS ROS ED Constitutional Constitutional ED: Denies chills or fever(s) Eyes Eyes: Denies change in vision or diplopia ENT ENT ED: Denies sore throat Cardiovascular Cardiovascular: Denies chest pain Respiratory/Chest Respiratory/Chest: Denies cough or dyspnea Gastrointestinal Gastrointestinal: Reports nausea and vomiting; Denies abdominal pain or diarrhea Genitourinary Genitourinary ED: Denies dysuria Musculoskeletal Musculoskeletal: Denies myalgias Integumentary Denies rash Neurologic Neurologic: Denies headache(s) Psychiatric Psychiatric: Reports anxiety and depression Hematologic/Lymphatic Hematologic/Lymphatic: Denies easy bleeding or easy bruising EXAM Physical Exam Const Vital Signs: 09/06/23 23:54 Temperature 96.7 F L Temperature Source Temporal Pulse Rate 52 L Respiratory Rate 18 Blood Pressure 133/67 H Blood Pressure Mean 89 Pulse Ox 100 Positive well nourished, well developed and obese General Appearance ED: well developed; Negative for pallor Nutritional Appearance: obese HEENT HEENT Narrative: Mucous membranes are slightly dry and tacky however there is no tongue or lip swelling no oral lesions no airway edema or compromise No signs of infection noted in the posterior pharynx Eyes PERRL and EOMs intact bilaterally General Eye ED: Negative for scleral icterus Neck supple Neck Narrative: No nuchal rigidity or meningeal signs Resp normal respiratory effort and clear to auscultation bilaterally Cardio regular rate and regular rhythm Rate: other Other Details: Radial and carotid pulses are equal and symmetric GI non-tender and non-distended GI Narrative: No voluntary guarding or rigidity No pulsatile mass or fluid wave No peritoneal signs Auscultation: normoactive bowel sounds Palpation: soft Back/Spine no CVA tenderness Extremity normal to inspection Neuro oriented x3, CN's II-XII intact bilaterally and no sensory deficits noted Sensorium / Orientation: alert Motor Exam: strength 5/5 throughout Psych mental status grossly normal Skin no rashes or lesions noted and no wounds Skin Narrative: Skin turgor slightly increased General Skin Exam: Negative for jaundice or pallor MDM MDM MDM Narrative Medical decision making narrative: Patient presented to the ER with stable vitals and a soft nonsurgical abdomen. She stated she has been having the symptoms since the surgery despite being reevaluated by her surgeon and following his/her instruction. Differential diagnosis is for viral stomach infection such as [place] versus rotavirus versus gastroparesis versus small bowel obstruction versus acute kidney injury versus severe electrolyte abnormality. Secondary to this basic labs were obtained and patient was started on IV Benadryl Reglan and 2 L of fluid. I did not feel the need for a CT scan based on the chronicity of her symptoms and the fact that her abdomen is soft and nonsurgical on evaluation at this time. While waiting for laboratory studies to result the patient decided that she did not need to be in the ER any longer and therefore left prior to completion of treatment History & Record Review Discussion w/independent historian: Patient Lab Data Attestation: I reviewed the patient's lab results. Labs: Laboratory Results - last 24 hr 09/07/23 00:04 WBC 4.6 RBC 3.98 L Hgb 12.3 Hct 37.5 MCV 94.2 MCH 30.9 MCHC 32.8 RDW Std Deviation 44.3 H RDW Coeff of Aurelio 12.9 Plt Count 166 MPV 11.9 Immature Gran % (Auto) 0.200 Neut % (Auto) 48.3 Lymph % (Auto) 41.3 H [place] % (Auto) 7.6 Eos % (Auto) 2.2 Baso % (Auto) 0.4 Absolute Neuts (auto) 2.2 Absolute Lymphs (auto) 1.91 Nucleated RBC % 0 Sodium 143 Potassium 3.2 L Chloride 111 H Carbon Dioxide 27.0 Anion Gap 5 BUN 13 Creatinine 0.77 Estim Creat Clear Calc 113.36 Est GFR (MDRD) Af Amer 104 Est GFR (MDRD) Non-Af 86 BUN/Creatinine Ratio 16.8 Glucose 94 Calcium 9.0 Magnesium 2.0 Total Bilirubin 0.60 Direct Bilirubin 0.12 AST 33 ALT 36 Alkaline Phosphatase 111 Total Protein 7.5 Albumin 3.9 Globulin 3.6 Lipase 30 Discharge Plan Triage Chief Complaint: Nausea/Vomiting/Diarrhea ED Provider: Frederick Lester Dx/Rx/DC Orders Clinical Impression: Nausea & vomiting, Mild dehydration, Anxiety and depression Prescriptions: No Action buspirone 7.5 mg tablet 7.5 mg PO BID ibuprofen 200 mg capsule 200 mg PO Q6H PRN (Reason: fever or pain) sertraline 100 mg tablet 150 mg PO DAILY Primary Care Provider: Elijah Love Referrals: Elijah Love MD [Primary Care Provider] - Print Language: Bengali Disposition Disposition: Elopement Discharge Date/Time: 09/07/23 01:54
--- NOTE | 2023-09-07 01:50 | ED.RN ---
Pt states she no longer wants to stay and get IV fluids. She states she needs to go to bed for work. IV removed and patient ambulates out of department.
[2023-09-07 01:52] LABS: AST(SGOT) 33 U/L (15-37); Alanine Aminotransfer ALT/SGPT 36 U/L (13-56); Albumin, Serum 3.9 g/dL (3.2-5.0); Alkaline Phosphatase 111 U/L (45-117); Anion Gap 5 (5-15); BUN 13 mg/dL (7-18); BUN/Creat Ratio 16.8 RATIO (10-20); Bilirubin, Direct 0.12 mg/dL (0.00-0.30); Chloride 111 mmol/L (98-107); Creatinine, Serum 0.77 mg/dL (0.55-1.02); EST Glomerular Filtration Rate 86 mL/min (>60); Est Glom Filt Rate - Afr Amer 104 mL/min (>60); Estimated Creatinine Clearance 113.36 ml/min; Globulin 3.6 g/dL (2.2-4.2); Glucose 94 mg/dL (74-106); Lipase 30 U/L (13-75); Potassium 3.2 mmol/L (3.5-5.1); Protein, Total 7.5 g/dL (6.4-8.2); Sodium Level 143 mmol/L (136-145)
== END 2023-09-07 01:54 | disposition left against medical advice (07) ==
PROVIDERS: Emergency Provider Emergency Medicine; PCP Family Medicine; Visit Provider Emergency Medicine
DX: R11.2 Nausea with vomiting, unspecified (principal); R19.7 Diarrhea, unspecified; F41.9 Anxiety disorder, unspecified; Z87.891 Personal history of nicotine dependence; E86.0 Dehydration; F32.A Depression, unspecified; Z85.3 Personal history of malignant neoplasm of breast; Z98.84 Bariatric surgery status
CPT/HCPCS: 80048; 80076; 83690; 83735; 85025; 96361; 96374; 96375; 99284; J7030; A4216